=== PATIENT | female | born 2000 | race Caucasian/White ===

== ENCOUNTER 2022-11-18 11:24 | Emergency (ER) | payer BC, SELFPAY ==
[2022-11-18 11:38] VITALS: BP 128/76; PULSE 104; RESP 16; TEMP 36.9; O2SAT 100
--- NOTE | 2022-11-18 12:20 | ED.URI ---
HPI - URI/Sore Throat General Chief Complaint: Ear Stated Complaint: ear pain,left eye irritation Time Seen by Provider: 11/18/22 12:13 Source: patient and RN notes reviewed Mode of arrival: ambulatory Limitations: no limitations History of Present Illness HPI Narrative: Patient presents today complaining of a 3 day history of bilateral ear pain, sore throat, postnasal drip, cough, with left eye redness and irritation that started today. Denies fever or shortness of breath. She has been using Advil, warm compresses to the eye, and nasal spray with mild relief. Currently rates her pain 10/14. Denies known sick contacts. Related Data Home Medications Medication Instructions Recorded Confirmed sumatriptan succinate 100 mg tablet See Rx Instructions .Route .COMPLEX 11/18/22 11/18/22 Allergies Allergy/AdvReac Type Severity Reaction Status Date / Time No Known Allergies Allergy Verified 11/18/22 11:46 Review of Systems Review of Systems: CONSTITUTIONAL: Denies body aches, fever, chills, or sweats. EYES: Denies visual changes, or discharge.+ left eye redness ENT:+ bilateral ear pain, sore throat, postnasal drip, congestion CARDIOVASCULAR: Denies chest pain, palpitations, or edema. RESPIRATORY: Denies dyspnea.+ cough GASTROINTESTINAL: Denies abdominal pain, nausea, vomiting, or diarrhea. GENITOURINARY: Denies dysuria or hematuria. SKIN: Denies rash, itching, or wounds. MUSCULOSKELETAL: Denies back pain, joint pain, or myalgia. NEUROLOGIC: Denies headache, numbness, tingling, or weakness. PSYCH: Denies depression or anxiety. PMFSH Comments At time of signature, I have reviewed and agree with nursing past medical, surgical, social and family history unless otherwise noted. Please see nursing chart for further information. There is no relevant family history pertinent to the presenting complaint Exam Narrative: GENERAL: Well-appearing, well-nourished, and in no acute distress. HEAD: Normocephalic, atraumatic. EYES: EOMI. No redness or drainage. Conjunctivae normal. ENT: Mucous membranes pink and moist. Nares congested. No rhinorrhea. TMs normal bilaterally. Throat mildly erythematous without edema or exudate. Uvula midline. NECK: Normal AROM. Supple. No lymphadenopathy. CHEST: No respiratory distress. Clear to auscultation. HEART: Regular rate and rhythm. No murmur appreciated. EXTREMITIES: Normal range of motion. No edema. SKIN: Warm, dry, no rash. Capillary refill normal. Normal skin turgor. NEURO: No focal deficits. Alert and oriented x3. Gait steady. PSYCH: Normal affect. No signs of depression or anxiety. Course Course Level of Care: Express Care Visit Vital Signs Vital signs: Vital Signs Temperature 98.5 F 11/18/22 11:38 Pulse Rate 104 H 11/18/22 11:38 Respiratory Rate 16 11/18/22 11:38 Blood Pressure 128/76 11/18/22 11:38 Pulse Oximetry 100 11/18/22 11:38 Oxygen Delivery Room Air 11/18/22 11:38 Temperature 98.5 F 11/18/22 11:38 Pulse Rate 104 H 11/18/22 11:38 Respiratory Rate 16 11/18/22 11:38 Blood Pressure 128/76 11/18/22 11:38 Pulse Oximetry 100 11/18/22 11:38 Oxygen Delivery Room Air 11/18/22 11:38 Reviewed. Pt has been instructed to follow up with her PCP regarding her elevated blood pressure today. MDM - URI/Sore Throat MDM Narrative Medical decision making narrative: Rapid strep negative. Symptoms likely viral in etiology. No prescription medications indicated at this time. Anticipatory guidance given. Differential Diagnosis Differential diagnosis: Likely upper respiratory infection, otitis media, sinusitis, viral infection, pharyngitis and other (Strep throat) Lab Data Attestation: I reviewed the patient's lab results. Labs: Strep Screen Presumptive Negative *(Reference Range: Negative)* Critical Care Time Critical Care Time Critical Care Time: No Disc
== END 2022-11-18 12:39 | disposition home or self-care (01) ==
PROVIDERS: Emergency Provider Nurse Practitioner; PCP Family Medicine
DX: J06.9 Acute upper respiratory infection, unspecified (principal)
CPT/HCPCS: 87081; 87880; 99203; G0463